=== PATIENT | female | born 1950 | race Caucasian/White ===

== ENCOUNTER 2022-02-24 12:46 | Day surgery (SDC) | payer MEDICARE ==
[2022-02-24] MEDS ORDERED: LIDOCAINE HCL/PF 3.5% OPTH GEL ONE (13:33)
[2022-02-24] MEDS ORDERED: Ringers Lactate 1,000 ML IV ONE (13:33)
[2022-02-24] MEDS ORDERED: PHENYLEPHRINE 10% OPTH 5ML ONE (13:33)
[2022-02-24] MEDS ORDERED: CYCLOPENTOLATE 1% OPTH 2 ML ONE (13:33)
[2022-02-24] MEDS ORDERED: LIDOCAINE 2% W/EPI 1:200,000 MPF 20 ML VIAL IM ONE (14:24)
[2022-02-24] MEDS ORDERED: BUPIVACAINE 0.25% PF 10 ML VIAL ONE (14:24)
[2022-02-24] MEDS ORDERED: BSS OPTHALMIC SOL 15 ML OPTH ONE (14:24)
[2022-02-24] MEDS ORDERED: DUOVISC 1 KIT OPTH ONE ×2 (14:25→15:46)
[2022-02-24] MEDS ORDERED: MOXIFLOXACIN HCL 10 DROPS/ML **OR USE OPTH ONE (14:25)
[2022-02-24] MEDS ORDERED: TRYPAN BLUE 0.5 ML SYR OPTH ONE (14:25)
[2022-02-24] MEDS ORDERED: BALANCED SALT IRRIG PLAIN 500 ML IRR ONE (14:25)
[2022-02-24] MEDS ORDERED: EPINEPHRINE/PF 1 MG/ML AMP ONE (14:25)
[2022-02-24] MEDS ORDERED: LIDOCAINE 1% MPF 2 ML AMPULE ONE (14:25)
[2022-02-24] MEDS ORDERED: TETRACAINE HCL 0.5% 4ML OPTH ONE (15:46)
[2022-02-24] MEDS ORDERED: ONDANSETRON 4 MG/2 ML VIAL ONE (15:54)
[2022-02-24] MEDS ORDERED: FENTANYL CITR 100 MCG/2 ML ONE (15:54)
[2022-02-24] MEDS ORDERED: MIDAZOLAM HCL 2 MG/2 ML INJ ONE (15:54)
[2022-02-24 17:25] VITALS: BP 171/74; TEMP 98; O2SAT 100
--- NOTE | 2022-02-25 06:33 | OP ---
Date of Procedure: 02/24/2022 Surgeon: Ginger Pearl MD Anesthesiologist: David Dick CRNA, anesthesia for cataract surgery. Preoperative Diagnosis: Combined form of cataract, right eye. Operation Performed: Phacoemulsification with intraocular lens implant, right eye. Anesthesia: Topical anesthesia. Complications: None. Description Of Procedure: In the operating room the patient was prepped and draped in the usual sterile fashion for ophthalmic surgery. A lid speculum was placed in the right eye. Two paracentesis sites were made superiorly and inferiorly in the limbal cornea. Preservative free lidocaine 1% then Viscoat was placed in the anterior chamber. A keratome was used to enter the anterior chamber. A 360 degree capsulotomy was performed with utrata forceps. The lens was hydrodissected with BSS and rotated freely. The lens was removed with a chop technique. 2.51 phaco CDE was used to remove the lens. Residual cortex was removed with the irrigation and aspiration. Provisc was placed in the capsular bag. A DCB00 +23.0 lens was placed in the capsular bag without complications. Irrigation and aspiration were used to remove residual viscoelastic. The paracentesis sites were hydrated with BSS. The wound and paracentesis sites were inspected and found to be watertight. Vigamox 0.07 cc was placed intracamerally at the end of the procedure. The eye was patched with a clear shield. The patient was returned to day surgery in good condition. Comments: Discharge Instructions: The patient was discharged to home in good condition and is to follow up with Dr. Pearl. MITRA/ELIEL Voice ID: [id number] Report ID: [id number]
== END 2022-02-24 17:11 | disposition home or self-care (01) ==
LOC: OR 12:46
PROVIDERS: ADMIT Ophthalmology Retina Specialist; ATTEND Ophthalmology Retina Specialist
PROC: 08RJ3JZ Replacement of Right Lens with Synthetic Substitute, Percutaneous Approach (ICD-10-PCS; principal; 2022-02-24 14:30)
DX: H25.811 Combined forms of age-related cataract, right eye (principal)
CPT/HCPCS: 66984; J0171; J2250; J3010; J7120; J2405